=== PATIENT | male | born 1955 | race Two or more races ===

== ENCOUNTER 2022-02-01 10:51 | Emergency (ER) | payer OTHER ==
[~2022-02-01] VITALS: Ht 175.3 cm; Wt 68.9 kg
== END 2022-02-01 13:33 | disposition home or self-care (01) ==
LOC: ER 10:51
DX: R07.89 Other chest pain (principal); F41.9 Anxiety disorder, unspecified

== ENCOUNTER 2024-04-13 08:40 | Emergency (ER) | payer OTHER ==
[~2024-04-13] VITALS: Ht 175.3 cm; Wt 67.1 kg
[~2024-04-13 08:40] MED LIST: CEFADROXIL500 MG PO; TAMS0.4C PO
[2024-04-13] MEDS ORDERED: TAMSULOSIN HCL 0.4 MG CAP PO ONE (09:15)
[2024-04-13 09:49] LABS: URINE APPEARANCE Clear; URINE BILIRRUBIN Negative (NEGATIVE); URINE BLOOD Large; URINE COLOR Yellow; URINE GLUCOSE Negative (NEGATIVE); URINE KETONE Negative (NEGATIVE); URINE LEUKOCYTE Negative; URINE NITRATE Negative; URINE PROTEIN Negative (NEGATIVE); URINE UROBILINOGEN 0.2 E.U./dl
[2024-04-13 09:50] LABS: URINE BACTERIA 69.2 uL (0.0-1933); URINE EPITHELIAL CELLS 11.5 uL (0.0-38.8); URINE WBC 23.9 uL (0.0-23.2)
[2024-04-13 10:16] LABS: URINE CAST 0.61 uL (0.0-1.40); URINE RBC 2806.6 uL (0.0-20.8)
[2024-04-13 10:57] LABS: HEMATOCRIT 40.5 % (39.0-48.0); HEMOGLOBIN 13.8 g/dL (13-16.00); MEAN CORPUSCULAR HEMOGLOBIN 31.3 pg (27.00-32.0); MEAN CORPUSCULAR HGB CONC 34.1 g/dl (32.0-36.0); PLATELET COUNT 176 K/uL (150-450); RED CELL DISTRIBUTION WIDTH 13.5 % (11.5-14.5)
[2024-04-13 11:29] LABS: ALBUMIN 3.7 gm/dL (3.4-5.0); BILIRUBIN TOTAL 0.42 mg/dL (0.3-1.2); CALCIUM 8.7 mg/dL (8.5-10.1); CREATININE SERUM 0.88 mg/dL (0.70-1.30); GFR 86.64; GLOBULINA 3.6 G/DL (2.4-3.5); POTASSIUM 4.76 mEq/L (3.5-5.1); TOTAL PROTEIN 7.3 gm/dL (6.4-8.2)
[2024-04-13] MEDS ORDERED: TAMS0.4C PO (11:42)
== END 2024-04-13 12:08 | disposition home or self-care (01) ==
LOC: ER 08:40
PROVIDERS: General Practice
DX: R33.9 Retention of urine, unspecified (principal)

== ENCOUNTER 2025-04-27 08:39 | Emergency (ER) | payer OTHER ==
[~2025-04-27] VITALS: Ht 177.8 cm; Wt 68.9 kg
[2025-04-27] MEDS ORDERED: LORATADINE 10 MG TABLET PO ONE (10:00)
[2025-04-27] MEDS ORDERED: ACETAMINOPHEN 500 MG GEL..CAP PO ONE ×2 (10:00→10:11)
[2025-04-27 11:10] LABS: BASO % 0.7 % (0.1-1.2); EOS # 0.06 (0.04-0.54); EOS % 1.0 % (0.7-7.0); LYMPH # 1.30 (1.18-3.74); LYMPH % 22.6 % (19.3-53.1); MEAN PLATELET VOLUME 9.30 fl (9.4-12.4); MONO # 1.12 (0.24-0.82); NEUT # 3.20 (1.56-6.13); NEUT % 55.9 % (34.0-71.1); RED CELL DISTRIBUTION WIDTH 12.9 % (11.6-14.4)
[2025-04-27 11:21] LABS: MONO % 19.5 % (4.7-12.5)
[2025-04-27 11:45] LABS: COVID-19 AG NEGATIVE (NEGATIVE)
== END 2025-04-27 14:49 | disposition home or self-care (01) ==
LOC: ER 08:39
DX: J30.9 Allergic rhinitis, unspecified (principal); R50.9 Fever, unspecified; Z20.822 Contact with and (suspected) exposure to COVID-19